=== PATIENT | male | born 1955 | race Caucasian/White ===

== ENCOUNTER 2023-11-01 11:16 | Emergency (ER) | payer MEDICARE, SELFPAY ==
[2023-11-01 11:35] VITALS: BP 137/95; PULSE 104; RESP 18; TEMP 36.4; O2SAT 96; BMI 19.2
--- NOTE | 2023-11-01 11:41 | XRR_ITS ---
PROCEDURE INFORMATION: Exam: XR Chest Exam date and time: 11/01/2023 12:11 PM Age: 68 years old Clinical indication: Other: Possible sepsis TECHNIQUE: Imaging protocol: Radiologic exam of the chest. Views: 1 view. COMPARISON: No relevant prior studies available. FINDINGS: Lungs: Unremarkable. No consolidation. Pleural spaces: Unremarkable. No pleural effusion. No pneumothorax. Heart/Mediastinum: Unremarkable. No cardiomegaly. Bones/joints: Unremarkable. XR/XR chest 1V portable [id number] IMPRESSION: No acute findings.
--- NOTE | 2023-11-01 11:50 | W.ED.WEAKNES ---
HPI - Weakness General: Chief complaint: Weakness Stated complaint: sweating, fever, weakness Time Seen by Provider: 11/01/23 11:35 History of Present Illness: This patient is a 68-year-old presenting with chills, sweats, fever as high as 104. The symptoms have been ongoing for 3 to 4 days. He denies any specific source of infection. He has no cough, runny nose, sore throat, ear pain, dental pain. No skin sores or ulcers. No rashes. No vomiting or diarrhea. He does admit to having some blood in the stool over the past several months but that has actually stopped in the past few days. He denies blood in the urine but does have some difficulty urinating which he attributes to probably having an enlarged prostate. He has not been to the doctor in 45 years. He takes a multivitamin daily but no other necc-wnf-awojoko medications. No prescription medications. He does not use alcohol, drugs, tobacco. He quit smoking a week ago. He has had significant weight loss recently. Physical Exam Const: COMMON NORMALS: no acute distress, patient oriented x3, no limitations and alert GENERAL APPEARANCE: cooperative and comfortable NUTRITIONAL APPEARANCE: underweight HENMT: HEAD & SCALP: normal to inspection FACE & SINUS: normal facial exam Eye: GENERAL EYE: appearance normal, both eyes and all related structures Neck/C-Spine: COMMON NORMALS: supple, no meningeal signs and no JVD Chest: COMMONS NORMALS: normal inspection of the chest Resp: COMMON NORMALS: normal respiratory effort, No use of accessory muscles and clear to auscultation bilaterally AUSCULTATION: clear to auscultation bilaterally Cardio: COMMON NORMALS: no JVD, regular rate, regular rhythm and No murmurs present (Cardio) RATE: regular rate RHYTHM: regular rhythm GI: COMMON NORMALS: Normal to inspection, nondistended, normoactive bowel sounds present, Soft to palpation and non-tender INSPECTION: Yes normal to inspection AUSCULTATION: Yes normoactive bowel sounds PALPATION: Yes Soft to palpation : OTHER: left inguinal hernia - reducible, non tender Back/Pelvis: COMMON NORMALS: thoracic and lumbar spine normal to inspection Extremity: COMMON NORMALS: normal to inspection Neuro: COMMON NORMALS: patient oriented x3, moves all extremities, no focal motor deficits and no sensory deficits noted SENSORIUM/ORIENTATION: Yes alert MENINGEAL SIGNS: Yes no meningeal signs Psych: COMMON NORMALS: mental status grossly normal, cooperative and normal affect Skin: COMMON NORMALS: no rashes or lesions noted and turgor normal GENERAL SKIN EXAM: no rashes or lesions noted and turgor normal Course Vital Signs: Vital signs: Vital Signs Temperature 97.5 F L 11/01/23 11:35 Pulse Rate 104 H 11/01/23 11:35 Respiratory Rate 18 11/01/23 11:35 Blood Pressure 122/77 11/01/23 14:37 Pulse Oximetry 97 11/01/23 14:37 Oxygen Delivery Me thod Room Air 11/01/23 14:37 MDM - Weakness Medical Decision Making Recent significant weight loss, blood in the stool, now fevers and chills. Concerning history in someone who has not seen a doctor in an extended number of years. Basic labs including CBC, CMP, urinalysis. His blood pressure is normal and he is afebrile here however he is tachycardic. Given the overall clinical picture and concern for sepsis and have ordered IV fluid bolus, cultures, lactic acid. At this time holding off on antibiotics until I have some idea of source. White blood cell count is noted to be 40,000. I did go ahead and order some Rocephin based on this. Other labs are notable for slightly elevated BUN and creatinine and slightly elevated glucose. LFTs are somewhat elevated. Urine with protein and blood as well as casts. CT was done and reveals suspected rectal cancer. There are multiple large fluid-filled masses in the liver which the radiologist suspects are abscesses. Necrotic metastatic lesions also possible. There is also a staghorn calculus in the kidney. I have discussed these findings with the patient and his family who have accompanied him today. Because of the elevated white count, fevers, rigors, suspected abscesses in the liver, he needs to be transferred to a higher level of care. I have spoken the transfer centers at [facility], [facility], [facility]. None have availability at this time. [facility] has accepted the patient to their hospitalist service but unfortunately a bed will not be available until tomorrow at the earliest most likely. I discussed this in detail with the patient and his family members. They understand that he will be staying here for now but will require transfer to another facility. He has had Rocephin and Zosyn. He has had IV fluid. We will continue to monitor. He appears comfortable at this time. The accepting physician at [facility] is Dr. Navas. Lab Data 11/01/23 12:00 11/01/23 12:00 Radiology Impressions Chest X-Ray 11/01/23 11:41 IMPRESSION: No acute findings. Abdomen/Pelvis CT 11/01/23 13:44 IMPRESSION: 1. Multiple complex cystic masses throughout the liver. I favor these to represent abscesses. Necrotic metastatic lesion should also be considered. 2. Segmental thickening involving the rectum which I favor to represent rectal carcinoma 3. Severe prostate enlargement 4. Left inguinal hernia 5. Right staghorn calculus with hydronephrosis ADDENDUM: 11/01/23 [id number] COMMENT: THIS REPORT CONTAINS FINDINGS THAT MAY BE CRITICAL TO PATIENT CARE. The exam findings were verbally communicated by me to VANESSA QUINTERO via telephone conference at 2:54 PM CDT on 11/01/2023. The findings were acknowledged and understood. Laboratory Results WBC 40.09 10^3/uL (3.29-11.43) H* 11/01/23 12:00 RBC 4.20 10^6/uL (3.85-5.65) 11/01/23 12:00 Hgb 13.90 g/dL (11.27-16.99) 11/01/23 12:00 Hct 39.9 % (37-53) 11/01/23 12:00 MCV 95.0 fl (82-101) 11/01/23 12:00 MCH 33.1 pg (27-33) H 11/01/23 12:00 MCHC 34.8 g/dL (30-55) 11/01/23 12:00 RDW 11.8 % (12.1-15.1) L 11/01/23 12:00 Plt Count 299 10^3/cmm (157-399) 11/01/23 12:00 MPV 9.5 fL (7.4-10.4) 11/01/23 12:00 Neut % (Auto) 90.4 % 11/01/23 12:00 Lymph % (Auto) 3.2 % 11/01/23 12:00 [place] % (Auto) 4.2 % 11/01/23 12:00 Eos % (Auto) 0.0 % 11/01/23 12:00 Baso % (Auto) 0.3 % 11/01/23 12:00 Neut # (Auto) 36.27 10^3/uL (1.8-7.7) H 11/01/23 12:00 Lymph # (Auto) 1.3 10^3/uL (0.8-4.8) 11/01/23 12:00 [place]range # (Auto) 1.7 10^3/uL (0.2-0.9) H 11/01/23 12:00 Eos # (Auto) 0.0 10^3/uL (0.0-0.8) 11/01/23 12:00 Baso # (Auto) 0.1 10^3/uL (0.0-0.1) 11/01/23 12:00 Nucleated RBC % (auto) 0 % 11/01/23 12:00 Nucleated RBCs # 0.0 /100WBC 11/01/23 12:00 PT 14.70 SECONDS (12.1-14.9) 11/01/23 12:00 INR 1.11 (0.8-1.2) 11/01/23 12:00 APTT 30.1 SECONDS (23.9-36.7) 11/01/23 12:00 Sodium 137 mmol/L (136-145) 11/01/23 12:00 Potassium 3.8 mmol/L (3.5-5.1) 11/01/23 12:00 Chloride 98 mmol/L (98-107) 11/01/23 12:00 Carbon Dioxide 22 mmol/L (22-29) 11/01/23 12:00 Anion Gap 20.8 (5-19) H 11/01/23 12:00 BUN 24 mg/dL (8-23) H 11/01/23 12:00 Creatinine 1.3 mg/dL (0.7-1.2) H 11/01/23 12:00 GFR Calculation 55.2 mL/min (90-130) L 11/01/23 12:00 Glucose 118 mg/dL (65-115) H 11/01/23 12:00 Calculated Osmolality 289 mOsm/kg (285-295) 11/01/23 12:00 Lactic Acid 1.9 mmol/L (0.5-2.2) 11/01/23 12:00 Calcium 9.1 mg/dL (8.5-10.5) 11/01/23 12:00 Magnesium 1.9 mg/dL (1.7-2.3) 11/01/23 12:00 Total Bilirubin 0.5 mg/dL (0.15-1.2) 11/01/23 12:00 AST 68 U/L (0-40) H 11/01/23 12:00 ALT 70 U/L (0-41) H 11/01/23 12:00 Alkaline Phosphatase 193 U/L (40-130) H 11/01/23 12:00 Total Protein 7.6 g/dL (6.6-8.7) 11/01/23 12:00 Albumin 3.4 g/dL (3.5-5.2) L 11/01/23 12:00 Globulin 4.2 g/dL (1.3-4.6) 11/01/23 12:00 Urine Color Dark yellow (Yellow) 11/01/23 13:45 Urine Appearance Slightly cloudy (CLEAR) 11/01/23 13:45 Urine pH 5 (5-7) 11/01/23 13:45 Ur Specific [place] 1.020 (1.005-1.030) 11/01/23 13:45 Urine Protein 1+ (Negative) H 11/01/23 13:45 Urine Glucose (UA) Norm (Normal) 11/01/23 13:45 Urine Ketones Negative (Negative) 11/01/23 13:45 Urine Blood 3+ (Negative) H 11/01/23 13:45 Urine Nitrate Negative (Negative) 11/01/23 13:45 Urine Bilirubin 1+ (Negative) H 11/01/23 13:45 Urine Urobilinogen 4 mg/dL (Negative) H 11/01/23 13:45 Ur Leukocyte Esterase 1+ (Negative) H 11/01/23 13:45 Urine RBC 10-15 /hpf (0-2) H 11/01/23 13:45 Urine WBC 10-15 /hpf (0-5) H 11/01/23 13:45 Ur Squamous Epith Cells 0-4 /hpf (0-5) H 11/01/23 13:45 Amorphous Sediment Not Reportable 11/01/23 13:45 Urine Bacteria 2+ /hpf (NONE) H 11/01/23 13:45 Hyaline Casts 10-15 /lpf H 11/01/23 13:45 Coarse Granular Casts 5-10 /lpf H 11/01/23 13:45 Urine Mucus Trace /hpf 11/01/23 13:45 All radiology interpretation(s) finalized by discharge Discharge Plan Discharge Patient Disposition: Xfer Short-Term Hosp Clinical Impression: Abscess of liver, Sepsis, Dehydration, Rectal cancer, Leukocytosis, Staghorn calculus, Kidney disease Condition: Serious Coding Level of Care Code ED Building Services Technician for Jamila Ojeda
[2023-11-01 12:08] LABS: Basophils # 0.1 10^3/uL (0.0-0.1); Basophils % 0.3 %; Hematocrit 39.9 % (37-53); Lymphocytes # 1.3 10^3/uL (0.8-4.8); Lymphocytes % 3.2 %; Mean Corpuscular HGB Conc 34.8 g/dL (30-55); Mean Corpuscular Hemoglobin 33.1 pg (27-33); Mean Platelet Volume 9.5 fL (7.4-10.4); Monocytes # 1.7 10^3/uL (0.2-0.9); Monocytes % 4.2 %; Neutrophils # 36.27 10^3/uL (1.8-7.7); Neutrophils % 90.4 %; Nucleated Red Blood Cells % 0 %; Platelet Count 299 10^3/cmm (157-399); Red Cell Distribution Width 11.8 % (12.1-15.1)
[2023-11-01 12:11] LABS: White Blood Count 40.09 10^3/uL (3.29-11.43)
[2023-11-01 12:24] LABS: Lactic Sepsis W/Reflex 1.9 mmol/L (0.5-2.2)
[2023-11-01 12:25] LABS: Alanine Aminotransferase 70 U/L (0-41); Albumin Level 3.4 g/dL (3.5-5.2); Alkaline Phosphatase 193 U/L (40-130); Anion Gap 20.8 (5-19); Aspartate Amino Transferase 68 U/L (0-40); Blood Urea Nitrogen 24 mg/dL (8-23); Calcium 9.1 mg/dL (8.5-10.5); Carbon Dioxide 22 mmol/L (22-29); Chloride 98 mmol/L (98-107); Globulin 4.2 g/dL (1.3-4.6); Glomerular Filtration Rate 55.2 mL/min (90-130); Glucose 118 mg/dL (65-115); Magnesium 1.9 mg/dL (1.7-2.3); Osmolality Calculated 289 mOsm/kg (285-295); Potassium 3.8 mmol/L (3.5-5.1); Sodium 137 mmol/L (136-145); Total Bilirubin 0.5 mg/dL (0.15-1.2); Total Protein 7.6 g/dL (6.6-8.7)
[2023-11-01 12:29] LABS: Creatinine Clr Calc Pharmacy 52.1849
[2023-11-01 12:31] LABS: INR 1.11 (0.8-1.2); Partial Thromboplastin Time 30.1 SECONDS (23.9-36.7)
--- NOTE | 2023-11-01 12:36 | ECG_ITS ---
[facility] Test Date: 2023-11-01 Pat Name: Suleman Valderrama Department: Room: Gender: Male Computer Training Specialist: : 1955 Requested By: Renee Pugh Order Number: [id number] Hardeep MD: Jordyn Do M.D. Measurements Intervals Purdys Rate: 87 P: 83 WV: 152 QRS: 76 QRSD: 90 T: 75 QT: 391 QTc: 471 Interpretive Statements SINUS RHYTHM No previous ECG available for comparison Diffuse early repolarization changes Electronically Signed On 11-01-2023 20:43:18 CDT by Jordyn Do M.D. [id number]
[2023-11-01] MEDS: cefTRIAXone 1,000 MG in sodium chloride 0.9% (plus) 100 ML 200 MG IV (12:49)
[2023-11-01 13:29] VITALS: O2SAT 99
--- NOTE | 2023-11-01 13:44 | CTR_ITS ---
PROCEDURE INFORMATION: Exam: CT Abdomen And Pelvis With Contrast Exam date and time: 11/01/2023 2:06 PM Age: 68 years old Clinical indication: Abdominal pain; Generalized; Additional info: Abdominal pain, fever TECHNIQUE: Imaging protocol: Computed tomography of the abdomen and pelvis with contrast. Radiation optimization: All CT scans at this facility use at least one of these dose optimization techniques: automated exposure control; mA and/or kV adjustment per patient size (includes targeted exams where dose is matched to clinical indication); or iterative reconstruction. Contrast material: OMNI 350; Contrast volume: 100 ml; Contrast route: INTRAVENOUS (IV); COMPARISON: CR (CHEST, ) 11/01/2023 12:11 PM RADIATION DOSE METRICS: Total DLP (mGy-cm): 329.14 FINDINGS: Lungs: Lung bases are clear. No pleural effusion. Liver: There are multiple rounded, multiloculated fluid-filled masses scattered throughout the liver. The largest mass measures 6 cm in diameter within the central portion of the liver. Gallbladder and bile ducts: Normal. No calcified stones. No ductal dilation. Pancreas: Normal. No ductal dilation. Spleen: Normal. No splenomegaly. Adrenal glands: Normal. No mass. Kidneys and ureters: There is a staghorn calculus lying within the right kidney with mild hydronephrosis noted. Stomach and bowel: There is prominent segmental thickening involving the wall of the proximal rectum. The thickening measures about 4 cm in length with a width of 3.3 cm. Appendix: No evidence of appendicitis. Intraperitoneal space: Unremarkable. No free air. No significant fluid collection. Vasculature: Unremarkable. No abdominal aortic aneurysm. Lymph nodes: Unremarkable. No enlarged lymph nodes. Urinary bladder: Unremarkable as visualized. Reproductive: The prostate gland is abnormally enlarged. Bones/joints: Unremarkable. No acute fracture. Soft tissues: A left inguinal hernia contains mesenteric fat. CT/CT abdomen pelvis w con* [id number] IMPRESSION: 1. Multiple complex cystic masses throughout the liver. I favor these to represent abscesses. Necrotic metastatic lesion should also be considered. 2. Segmental thickening involving the rectum which I favor to represent rectal carcinoma 3. Severe prostate enlargement 4. Left inguinal hernia 5. Right staghorn calculus with hydronephrosis
[2023-11-01] MEDS: iohexol 350 mg/mL 500 mL Btl (per mL) IV (14:09)
[2023-11-01 14:28] LABS: Glucose Urine UA Norm (Normal); Ketones Urine Negative (Negative); Protein Urine 1+ (Negative); Urine Appearance Slightly Cloudy (CLEAR); Urine Color Dark Yellow (Yellow); pH Urine 5 (5-7)
[2023-11-01 14:29] LABS: Add Urine Microscopic? YES; Bacteria Urine 2+ /hpf; Bilirubin Urine 1+ (Negative); Blood Urine 3+ (Negative); Leukocyte Esterase Urine 1+ (Negative); Mucus Urine TRACE /hpf; Nitrate Urine Negative (Negative); Squamous Epithelial Cell Urine 0-4 /hpf (0-5); Urobilinogen Urine 4 mg/dL (Negative)
[2023-11-01 14:30] LABS: Add Urine Culture? No
[2023-11-01 14:37] VITALS: BP 122/77; O2SAT 97
[2023-11-01] MEDS: PIPERACILLIN TAZOBACTAM IV (16:07)
[2023-11-01] MEDS: SODIUM CHLORIDE 0.9% IV (16:07)
--- NOTE | 2023-11-01 17:32 | P.CONIM_ITS ---
Providers/Reason For Consult 2 Consulting Physician/Specialty*: Hospitalist Reason for Consult*: Medical management liver abscess History of Present Illness History of Present Illness Suleman Valderrama is a 68 year old male who is in the ICU for management and evaluation of fever chills sweating difficulty urinating. In the ER patient was diagnosed with abscess of liver, he has been diagnosed with sepsis, received septic bolus, blood cultures taken, lactic acid normal meet sepsis criteria, he received antibiotics, hospitalist has been requested to medical manage while he is waiting for the bed at [facility] Patient is stating that he does not have any medical conditions, has been trying to gain some muscle mass to boost of his energy, he has been using a lot of energy drinks, trying some herbal medications but does not have any history of cancer, he has stopped smoking, active for his age, patient stating that for last 1 year he has been noticing bright bleed per rectum which she has ignored until now, patient is stating a week ago before his evaluation in the ER bleeding per rectum has stopped and now he is noticing mucus, he has been noticing weight loss, The main reason that prompted his visit to the ER was chills, rigors, subjective fevers. His symptoms worsened in last few days. He has cats at home, no overseas traveling, no history of TB Review of Systems 2 Const: Reports: fever(s), chills, fatigue and malaise Eyes: Denies: change in vision ENMT: Denies: throat pain Card: Denies: chest pain Resp: Reports: dyspnea GI: Reports: nausea : Denies: flank pain Musc: Denies: neck pain Medications/Allergies Home Medications Medication Instructions Recorded Confirmed Last Taken Type No Known Home Medications 11/02/23 11/02/23 Unknown History Allergies Allergy/AdvReac Type Severity Reaction Status Date / Time No Known Allergies Allergy Verified 11/01/23 11:42 Vitals/I&O/Wt Last Vital Signs Temp 97.5 F L 11/01/23 11:35 Pulse 104 H 11/01/23 11:35 Resp 18 11/01/23 11:35 BP 122/77 11/01/23 14:37 Pulse Ox 97 11/01/23 14:37 O2 Del Method Room Air 11/01/23 14:37 11/01/23 11/01/23 11/01/23 06:59 14:59 22:59 Intake Total 1770 / 1770 100 / 1870 Balance 1769 / 177 100 / 1870 Weight last 48 hrs Weight 58.967 kg Physical Exam 2 Narrative: Pleasant cooperative Euvolemic Nonfocal neuroexam Appears more than stated age GCS 15 No tenderness on abdominal exam No sign of peritonitis Hemodynamic stable Currently on room air Data 11/02/23 06:05 11/02/23 06:05 Micro: Microbiology 11/01/23 11:58 Blood Culture - Preliminary Blood SPECIMEN COLLECTED 11/01/23 12:00 Blood Culture - Preliminary Blood SPECIMEN COLLECTED A&P Assessment and plan (1) Abscess of liver: (2) Kidney disease: (3) Dehydration: (4) Leukocytosis: (5) Rectal cancer: (6) Sepsis: Plan Sepsis Source is liver abscess Criteria met with tachypnea tachycardia leukocytosis Lactic acid is normal Received septic bolus in the ER 30 mill per kilo Received antibiotics Blood cultures taken Patient has been accepted at [facility] Awaiting bed I will start him on vancomycin along Zosyn, add clindamycin Continue IV fluids maintenance rate Patient needs surgical drainage of liver abscess as soon as possible to avoid septic shock Will keep him on clear liquid diet Avoid DVT prophylaxis anticipation of drainage of abscess Abnormal liver enzymes, trend CBC and CMP BPH: Check PSA Request Partida catheter placement [place]: Right staghorn calculi with hydronephrosis: Creatinine 1.3 I do not have his previous BMP to compare his creatinine baseline CT abdomen pelvis findings consistent with segmental thickening involving the rectum concern for rectal carcinoma Rectal thickening 4 x 3.3 cm Full code Cardiac diet Holding DVT prophylaxis for now Consult Attestations 2 Medical Necessity Statement: Awaiting transfer Diagnoses Abscess of liver K75.0 Kidney disease N28.9 Dehydration E86.0 Leukocytosis D72.829 Rectal cancer C20 Sepsis A41.9
[2023-11-01] MEDS: vancomycin 1,000 MG in sodium chloride 0.9% 250 ML 250 MG IV (18:29)
[2023-11-01] MEDS: clindamycin 900 MG/50 ML PREMIX 100 MG IV (18:29)
[2023-11-01 18:31] VITALS: RESP 18
[2023-11-01] MEDS: sodium chloride 0.9% 1,000 ML 75 ML IV (19:35)
[2023-11-01 20:00] VITALS: BP 111/71; PULSE 88; RESP 14; O2SAT 95
[2023-11-02] VITALS: BP 116/77; PULSE 100; RESP 14; O2SAT 98
[2023-11-02] MEDS: piperacillin-tazobactam 3.375 GM in sodium chloride 0.9% (plus) 100 ML IV ×2 (00:09→09:10)
[2023-11-02] MEDS: clindamycin 900 MG/50 ML PREMIX 100 MG IV (02:44)
[2023-11-02] MEDS: sodium chloride 0.9% 1,000 ML 75 ML IV (06:07)
[2023-11-02 06:17] LABS: Basophils % 0.2 %; Eosinophils # 0.1 10^3/uL (0.0-0.8); Eosinophils % 0.2 %; Hematocrit 32.9 % (37-53); Lymphocytes # 1.6 10^3/uL (0.8-4.8); Lymphocytes % 6.1 %; Mean Corpuscular HGB Conc 35.3 g/dL (30-55); Mean Corpuscular Volume 93.7 fl (82-101); Mean Platelet Volume 9.6 fL (7.4-10.4); Monocytes # 1.3 10^3/uL (0.2-0.9); Monocytes % 5.2 %; Neutrophils # 22.35 10^3/uL (1.8-7.7); Neutrophils % 87.1 %; Nucleated Red Blood Cells % 0 %; Platelet Count 271 10^3/cmm (157-399); Red Blood Count 3.51 10^6/uL (3.85-5.65); White Blood Count 25.68 10^3/uL (3.29-11.43)
[2023-11-02 06:23] VITALS: BP 113/68; PULSE 87; RESP 14; O2SAT 98
--- NOTE | 2023-11-02 06:29 | PC.NURSE ---
pt sister in law pt gave verbal consent to speak to debra villatoro.
[2023-11-02 06:36] LABS: Alanine Aminotransferase 49 U/L (0-41); Albumin Level 2.9 g/dL (3.5-5.2); Alkaline Phosphatase 173 U/L (40-130); Anion Gap 16.3 (5-19); Aspartate Amino Transferase 36 U/L (0-40); Blood Urea Nitrogen 17 mg/dL (8-23); C Reactive Protein 205.7 mg/L (0.0-4.9); Calcium 8.1 mg/dL (8.5-10.5); Carbon Dioxide 19 mmol/L (22-29); Chloride 103 mmol/L (98-107); Creatinine Clr Calc Pharmacy 84.8004; Globulin 3.3 g/dL (1.3-4.6); Glomerular Filtration Rate 96.7 mL/min (90-130); Glucose 109 mg/dL (65-115); Magnesium 1.7 mg/dL (1.7-2.3); Osmolality Calculated 282 mOsm/kg (285-295); Potassium 3.3 mmol/L (3.5-5.1); Sodium 135 mmol/L (136-145); Total Bilirubin 0.4 mg/dL (0.15-1.2); Total Protein 6.2 g/dL (6.6-8.7)
[2023-11-02 08:47] VITALS: BP 119/73; PULSE 90; RESP 16; O2SAT 99
== END 2023-11-02 10:09 | disposition short-term general hospital (02) ==
PROVIDERS: Internal Medicine; Emergency Provider Emergency Medicine
DX: A41.9 Sepsis, unspecified organism (principal); K75.0 Abscess of liver; D72.829 Elevated white blood cell count, unspecified; E86.0 Dehydration; N28.9 Disorder of kidney and ureter, unspecified; N13.2 Hydronephrosis with renal and ureteral calculous obstruction; K40.90 Unilateral inguinal hernia, without obstruction or gangrene, not specified as recurrent
CPT/HCPCS: 36415; 71045; 74177; 80053; 81001; 83605; 83735; 85025; 85610; 85730; 86140; 87040; 87086; 93005; 96365; 96366; 96367; 99285; J0696; J2543; J3370; J3490; J7030; J7050; Q9967

== ENCOUNTER 2023-11-16 12:42 | Oncology outpatient (recurring) (ONCR) | payer MEDICARE, SELFPAY ==
[2023-11-16 13:16] LABS: Basophils # 0.1 10^3/uL (0.0-0.1); Basophils % 0.4 %; Eosinophils % 0.3 %; Hematocrit 42.3 % (37-53); Lymphocytes # 2.7 10^3/uL (0.8-4.8); Lymphocytes % 19.3 %; Mean Corpuscular HGB Conc 33.3 g/dL (30-55); Mean Corpuscular Hemoglobin 32.6 pg (27-33); Mean Corpuscular Volume 97.7 fl (82-101); Mean Platelet Volume 8.9 fL (7.4-10.4); Monocytes # 1.1 10^3/uL (0.2-0.9); Monocytes % 7.9 %; Neutrophils # 9.78 10^3/uL (1.8-7.7); Neutrophils % 70.8 %; Nucleated Red Blood Cells % 0 %; Platelet Count 614 10^3/cmm (157-399); Red Blood Count 4.33 10^6/uL (3.85-5.65); Red Cell Distribution Width 13.2 % (12.1-15.1); White Blood Count 13.81 10^3/uL (3.29-11.43)
[2023-11-16 13:35] LABS: Alanine Aminotransferase 71 U/L (0-41); Albumin Level 3.8 g/dL (3.5-5.2); Alkaline Phosphatase 173 U/L (40-130); Anion Gap 18.1 (5-19); Aspartate Amino Transferase 49 U/L (0-40); Blood Urea Nitrogen 37 mg/dL (8-23); Calcium 9.7 mg/dL (8.5-10.5); Carbon Dioxide 24 mmol/L (22-29); Chloride 97 mmol/L (98-107); Globulin 3.9 g/dL (1.3-4.6); Glomerular Filtration Rate 84.4 mL/min (90-130); Glucose 173 mg/dL (65-115); Osmolality Calculated 291 mOsm/kg (285-295); Potassium 5.1 mmol/L (3.5-5.1); Sodium 134 mmol/L (136-145); Total Bilirubin 0.3 mg/dL (0.15-1.2); Total Protein 7.7 g/dL (6.6-8.7)
== END 2023-11-22 23:59 | disposition home or self-care (01) ==
LOC: ONCMED 12:43
PROVIDERS: Internal Medicine Infectious Disease; PCP Nurse Practitioner; Visit Provider Internal Medicine Medical Oncology
DX: A41.9 Sepsis, unspecified organism (principal)
CPT/HCPCS: 36591; 80053; 85025

== ENCOUNTER → 2023-12-10 08:40 | Outpatient (BNVA) | payer MEDICARE, SELFPAY | PROVIDERS: PCP Nurse Practitioner; Visit Provider Nurse Practitioner | DX: K75.0 Abscess of liver (principal) | CPT/HCPCS: 80053 ==

== ENCOUNTER 2023-12-16 09:30 | Outpatient (CLI) | payer MEDICARE, SELFPAY ==
--- NOTE | 2023-12-16 10:15 | FL_ITS ---
WS: [id number] [place] barium enema [id number] REASON FOR EXAM: ADENOCARCINOMA OF RECTOSIGMOID COLON FLUOROSCOPY TIME: 6min [id number] # OF SPOT FILMS: 10 FINDINGS: Review of the patient's previous CT scan 11/01/2023. Demonstrated liver abscesses, enhancing colonic ma ss near the the perceived rectosigmoid junction with significantly redundant sigmoid colon. Patient presents with right-sided ostomy for presurgical evaluation for reanastomosis. No information regarding the extent of colon resection. Low pressure enema with thin barium was performed per rectum. The contrast column did not progress be yond the mid pelvis. The proximal extent of the remnant colon could not readily be identified in the redundant loops of bowel.. Patient was unable to hold additional volume of contrast. Colon was gravit y drained in the standard enema tip removed. A Partida catheter was advanced advanced per rectum the fu ll length of the Partida catheter. Water-soluble contrast and small amount of air was injected. Again c ontrast did not progress beyond the mid pelvis. Remnant colon could not be clearly identified. Small amount of air was injected without further demonstration of Partida catheter was advanced through the ostomy site and contrast injected as the catheter was withdra wn. This demonstrated patent small bowel loops with a moderate sized diverticulum. DISCUSSION: Unclear as to how much remaining colon would be left considering the position of the carcinoma and th at the ostomy is small bowel. Since the proximal end of the remaining colon was not clearly demonstrated and it is uncertain if all the remnant colon was visualized, repeat examination could be performed in 2 weeks at which time a m ore aggressive hydrostatic pressure could be applied to better visualize the remaining colon. Also wo uld be helpful to know more surgical detail/extent of colon resection. FL/FL barium enema [id number] IMPRESSION: There are amount of resected was not known. The perirectal examination did not clearly demonstrate the proximal end of the remnant colon. Hydrostatic pressure for the exam was restricted by the recent s urgery.
== END 2023-12-16 10:10 | disposition home or self-care (01) ==
PROVIDERS: PCP Nurse Practitioner; Visit Provider Surgery
DX: C18.9 Malignant neoplasm of colon, unspecified (principal)
CPT/HCPCS: 74270

== ENCOUNTER 2023-12-21 11:00 | Oncology outpatient (recurring) (ONCR) | payer MEDICARE, SELFPAY ==
[2023-11-23 13:21] LABS: Basophils # 0.1 10^3/uL (0.0-0.1); Basophils % 0.4 %; Eosinophils # 0.1 10^3/uL (0.0-0.8); Eosinophils % 0.9 %; Lymphocytes # 2.4 10^3/uL (0.8-4.8); Lymphocytes % 15.9 %; Mean Corpuscular Hemoglobin 32.8 pg (27-33); Mean Corpuscular Volume 96.6 fl (82-101); Mean Platelet Volume 9.5 fL (7.4-10.4); Monocytes # 1.5 10^3/uL (0.2-0.9); Monocytes % 10.3 %; Neutrophils # 10.61 10^3/uL (1.8-7.7); Neutrophils % 71.3 %; Nucleated Red Blood Cells % 0 %; Platelet Count 345 10^3/cmm (157-399); Red Blood Count 4.45 10^6/uL (3.85-5.65); Red Cell Distribution Width 13.2 % (12.1-15.1); White Blood Count 14.88 10^3/uL (3.29-11.43)
[2023-11-23 13:49] LABS: Carcinoembryonic Antigen 3.8 ng/mL (0.0-4.7)
[2023-11-23 14:00] LABS: Alanine Aminotransferase 42 U/L (0-41); Albumin Level 3.9 g/dL (3.5-5.2); Alkaline Phosphatase 136 U/L (40-130); Anion Gap 15.5 (5-19); Aspartate Amino Transferase 26 U/L (0-40); Blood Urea Nitrogen 47 mg/dL (8-23); Calcium 9.4 mg/dL (8.5-10.5); Carbon Dioxide 21 mmol/L (22-29); Chloride 98 mmol/L (98-107); Creatinine Clr Calc Pharmacy 60.0873; Globulin 3.2 g/dL (1.3-4.6); Glomerular Filtration Rate 84.4 mL/min (90-130); Glucose 97 mg/dL (65-115); Osmolality Calculated 282 mOsm/kg (285-295); Potassium 4.5 mmol/L (3.5-5.1); Sodium 130 mmol/L (136-145); Total Bilirubin 0.4 mg/dL (0.15-1.2); Total Protein 7.1 g/dL (6.6-8.7)
[2023-11-30 13:31] LABS: Basophils % 0.2 %; Eosinophils % 0.3 %; Hematocrit 38.4 % (37-53); Lymphocytes # 1.7 10^3/uL (0.8-4.8); Lymphocytes % 11.8 %; Mean Corpuscular HGB Conc 33.9 g/dL (30-55); Mean Corpuscular Hemoglobin 32.9 pg (27-33); Mean Corpuscular Volume 97.2 fl (82-101); Mean Platelet Volume 9.2 fL (7.4-10.4); Monocytes # 1.4 10^3/uL (0.2-0.9); Monocytes % 9.5 %; Neutrophils # 11.29 10^3/uL (1.8-7.7); Neutrophils % 77.3 %; Nucleated Red Blood Cells % 0 %; Platelet Count 338 10^3/cmm (157-399); Red Blood Count 3.95 10^6/uL (3.85-5.65); Red Cell Distribution Width 13.7 % (12.1-15.1); White Blood Count 14.59 10^3/uL (3.29-11.43)
[2023-11-30 13:49] LABS: Alanine Aminotransferase 16 U/L (0-41); Albumin Level 3.4 g/dL (3.5-5.2); Alkaline Phosphatase 109 U/L (40-130); Anion Gap 16.5 (5-19); Aspartate Amino Transferase 18 U/L (0-40); Blood Urea Nitrogen 45 mg/dL (8-23); Calcium 9.4 mg/dL (8.5-10.5); Carbon Dioxide 21 mmol/L (22-29); Chloride 97 mmol/L (98-107); Creatinine Clr Calc Pharmacy 49.1623; Globulin 3.9 g/dL (1.3-4.6); Glucose 193 mg/dL (65-115); Osmolality Calculated 287 mOsm/kg (285-295); Potassium 4.5 mmol/L (3.5-5.1); Sodium 130 mmol/L (136-145); Total Bilirubin 0.3 mg/dL (0.15-1.2); Total Protein 7.3 g/dL (6.6-8.7)
--- NOTE | 2023-12-08 12:00 | PETR_ITS ---
PROCEDURE INFORMATION: Exam: PET/CT Skull Base to Mid-thigh Exam date and time: 12/08/2023 12:32 PM Age: 68 years old Clinical indication: Condition or disease; Primary cancer: Rectosigmoid cancer; Initial oncological staging assessment; Additional info: Initial staging LABS AND CLINICAL REPORTS: Glucose: 117 mg/dl Treatment strategy for malignancy (PET staging): Initial Staging (PI) TECHNIQUE: Imaging protocol: Following at least four-hour fasting and following the injection of radiopharmaceutical, low dose CT images were obtained. Then, PET images were obtained. Attenuation corrected images were constructed using the CT scan. Fused images of PET and CT were reviewed. The standardized uptake values (SUV) reported below are maximum values within a region of interest, expressed in gm/ml. Exam includes orbital meatal line to mid-thigh. Radiopharmaceutical: 11.12 mCi F-18 FDG (Fluorodeoxyglucose), IV. Time of imaging post radiopharmaceutical administration: 1 hour Injection site: right AC COMPARISON: CT abdomen pelvis w con* [id number] 11/01/2023 2:06 PM FINDINGS: Tubes, catheters and devices: Right upper extremity PICC terminates in the distal SVC. Brain: Visualized brain has normal physiologic uptake. Pharynx: No abnormal uptake. Larynx: No abnormal uptake. Lungs, pleura and trachea: Some patchy subpleural ground-glass in the right lower lobe does not have significantly increased FDG uptake and may reflect atelectasis or pneumonitis. Heart: Normal physiologic uptake. Mediastinal space: No abnormal uptake. Liver: Previously noted complex low-density liver lesions are difficult to evaluate in the absence of contrast but appear grossly decreased in size. There is no associated increased FDG uptake. Gallbladder and biliary ducts: No abnormal uptake. Pancreas: No abnormal uptake. Spleen: Calcified splenic granulomas. Adrenal glands: No abnormal uptake. Kidneys and ureters: Redemonstrated right hydronephrosis with numerous right renal calculi including a large stone extending into the renal pelvis. Stomach and bowel: Postsurgical changes of sigmoid colectomy with diverting right lower quadrant ileostomy. Vasculature: No abnormal uptake. Lymph nodes: Calcified mediastinal lymph nodes are seen. Skeleton: No abnormal uptake in the visualized axial and appendicular skeleton. Soft tissues: No abnormal uptake in the visualized head, neck, chest, abdomen, pelvis, and extremities. PET/PET skull to thigh INIT [id number] IMPRESSION: 1. No FDG avid disease is identified. 2. Previously noted complex low-density liver lesions are difficult to evaluate in the absence of contrast but appear grossly decreased in size. There is no associated increased FDG uptake.
[2023-12-08 14:37] LABS: Basophils % 0.4 %; Eosinophils # 0.2 10^3/uL (0.0-0.8); Eosinophils % 1.8 %; Hematocrit 37.5 % (37-53); Lymphocytes # 2.4 10^3/uL (0.8-4.8); Lymphocytes % 21.4 %; Mean Corpuscular HGB Conc 33.3 g/dL (30-55); Mean Corpuscular Hemoglobin 32.7 pg (27-33); Mean Corpuscular Volume 98.2 fl (82-101); Mean Platelet Volume 8.6 fL (7.4-10.4); Monocytes # 0.7 10^3/uL (0.2-0.9); Monocytes % 6.4 %; Neutrophils # 7.77 10^3/uL (1.8-7.7); Neutrophils % 68.1 %; Nucleated Red Blood Cells % 0 %; Platelet Count 483 10^3/cmm (157-399); Red Blood Count 3.82 10^6/uL (3.85-5.65); Red Cell Distribution Width 14.7 % (12.1-15.1)
[2023-12-08 14:44] LABS: Alanine Aminotransferase 75 U/L (0-41); Albumin Level 3.6 g/dL (3.5-5.2); Alkaline Phosphatase 106 U/L (40-130); Aspartate Amino Transferase 45 U/L (0-40); Chloride 104 mmol/L (98-107); Globulin 3.3 g/dL (1.3-4.6); Glucose 110 mg/dL (65-115); Sodium 136 mmol/L (136-145); Total Protein 6.9 g/dL (6.6-8.7)
[2023-12-08 15:07] LABS: Blood Urea Nitrogen 33 mg/dL (8-23); Carbon Dioxide 21 mmol/L (22-29); Creatinine Clr Calc Pharmacy 67.5982; Glomerular Filtration Rate 112.8 mL/min (90-130); Osmolality Calculated 290 mOsm/kg (285-295); Total Bilirubin 0.3 mg/dL (0.15-1.2)
[2023-12-16 12:58] LABS: Basophils # 0.1 10^3/uL (0.0-0.1); Basophils % 0.6 %; Eosinophils # 0.2 10^3/uL (0.0-0.8); Eosinophils % 1.9 %; Hematocrit 41.5 % (37-53); Lymphocytes # 2.1 10^3/uL (0.8-4.8); Lymphocytes % 19.7 %; Mean Corpuscular HGB Conc 33.3 g/dL (30-55); Mean Corpuscular Hemoglobin 32.5 pg (27-33); Mean Corpuscular Volume 97.9 fl (82-101); Mean Platelet Volume 8.8 fL (7.4-10.4); Monocytes # 0.8 10^3/uL (0.2-0.9); Monocytes % 7.7 %; Neutrophils # 7.32 10^3/uL (1.8-7.7); Neutrophils % 69.2 %; Nucleated Red Blood Cells % 0 %; Platelet Count 336 10^3/cmm (157-399); Red Blood Count 4.24 10^6/uL (3.85-5.65); Red Cell Distribution Width 15.6 % (12.1-15.1); White Blood Count 10.59 10^3/uL (3.29-11.43)
[2023-12-16 13:23] LABS: Carcinoembryonic Antigen 3.9 ng/mL (0.0-4.7)
[2023-12-16 13:35] LABS: Alanine Aminotransferase 56 U/L (0-41); Albumin Level 3.8 g/dL (3.5-5.2); Alkaline Phosphatase 102 U/L (40-130); Anion Gap 16.5 (5-19); Aspartate Amino Transferase 30 U/L (0-40); Blood Urea Nitrogen 29 mg/dL (8-23); Calcium 9.3 mg/dL (8.5-10.5); Carbon Dioxide 22 mmol/L (22-29); Chloride 103 mmol/L (98-107); Creatinine Clr Calc Pharmacy 67.5982; Globulin 3.6 g/dL (1.3-4.6); Glomerular Filtration Rate 96.7 mL/min (90-130); Glucose 105 mg/dL (65-115); Osmolality Calculated 290 mOsm/kg (285-295); Potassium 4.5 mmol/L (3.5-5.1); Sodium 137 mmol/L (136-145); Total Bilirubin 0.3 mg/dL (0.15-1.2); Total Protein 7.4 g/dL (6.6-8.7)
== END 2023-12-23 23:59 | disposition home or self-care (01) ==
PROVIDERS: Internal Medicine; Internal Medicine Infectious Disease; PCP Nurse Practitioner; Visit Provider Internal Medicine Medical Oncology
DX: C19 Malignant neoplasm of rectosigmoid junction (principal); Z53.9 Procedure and treatment not carried out, unspecified reason; Z90.49 Acquired absence of other specified parts of digestive tract; Z93.2 Ileostomy status; Z45.2 Encounter for adjustment and management of vascular access device
CPT/HCPCS: 36591; 36592; 78815; 80053; 82378; 85025; 99203; 99215; A9552

== ENCOUNTER 2024-01-04 12:38 | Oncology outpatient (recurring) (ONCR) | payer MEDICARE, MEDICAID, SELFPAY ==
[2024-01-04 12:58] LABS: Basophils % 0.4 %; Eosinophils # 0.2 10^3/uL (0.0-0.8); Eosinophils % 2.3 %; Hematocrit 38.3 % (37-53); Lymphocytes # 2.7 10^3/uL (0.8-4.8); Lymphocytes % 27.2 %; Mean Corpuscular HGB Conc 33.4 g/dL (30-55); Mean Corpuscular Hemoglobin 32.9 pg (27-33); Mean Corpuscular Volume 98.5 fl (82-101); Mean Platelet Volume 8.7 fL (7.4-10.4); Monocytes # 0.9 10^3/uL (0.2-0.9); Monocytes % 8.7 %; Neutrophils # 6.02 10^3/uL (1.8-7.7); Neutrophils % 60.9 %; Nucleated Red Blood Cells % 0 %; Platelet Count 215 10^3/cmm (157-399); Red Blood Count 3.89 10^6/uL (3.85-5.65); Red Cell Distribution Width 15.2 % (12.1-15.1); White Blood Count 9.89 10^3/uL (3.29-11.43)
[2024-01-04 13:29] LABS: Carcinoembryonic Antigen 2.6 ng/mL (0.0-4.7)
[2024-01-04 13:41] LABS: Alanine Aminotransferase 16 U/L (0-41); Albumin Level 3.8 g/dL (3.5-5.2); Alkaline Phosphatase 84 U/L (40-130); Anion Gap 15.1 (5-19); Aspartate Amino Transferase 17 U/L (0-40); Blood Urea Nitrogen 16 mg/dL (8-23); Calcium 9.2 mg/dL (8.5-10.5); Carbon Dioxide 28 mmol/L (22-29); Chloride 103 mmol/L (98-107); Globulin 2.8 g/dL (1.3-4.6); Glomerular Filtration Rate 96.7 mL/min (90-130); Glucose 100 mg/dL (65-115); Osmolality Calculated 295 mOsm/kg (285-295); Potassium 4.1 mmol/L (3.5-5.1); Sodium 142 mmol/L (136-145); Total Bilirubin 0.3 mg/dL (0.15-1.2); Total Protein 6.6 g/dL (6.6-8.7)
== END 2024-01-23 23:55 | disposition home or self-care (01) ==
PROVIDERS: PCP Nurse Practitioner; Visit Provider Internal Medicine Medical Oncology
DX: C19 Malignant neoplasm of rectosigmoid junction (principal); Z90.49 Acquired absence of other specified parts of digestive tract; Z93.2 Ileostomy status; K76.9 Liver disease, unspecified; A41.9 Sepsis, unspecified organism; Z53.9 Procedure and treatment not carried out, unspecified reason
CPT/HCPCS: 36415; 80053; 82378; 85025; 99213

== ENCOUNTER → 2025-01-05 09:29 | Outpatient (BNVA) | payer MEDICARE, MEDICAID, SELFPAY | PROVIDERS: PCP Nurse Practitioner; Visit Provider Nurse Practitioner | DX: Z12.5 Encounter for screening for malignant neoplasm of prostate (principal); Z13.6 Encounter for screening for cardiovascular disorders; I10 Essential (primary) hypertension; R91.8 Other nonspecific abnormal finding of lung field; E55.9 Vitamin D deficiency, unspecified; R53.83 Other fatigue | CPT/HCPCS: 71046; 80053; 80061; 81000; 82306; 84443; 85025; G0103 ==